=== PATIENT | female | born 1990 | race Caucasian/White ===

== ENCOUNTER 2017-01-08 22:37 | Inpatient (IN) | payer OTHER ==
[2017-01-09 01:47] LABS: Hematocrit 43.3 % (30.3-42.9); Hemoglobin 14.4 gm/dl (10.1-14.3); Mean Corpuscular HGB Conc 33 % (30-34); Mean Corpuscular Hemoglobin 30 pg (28-32); Mean Corpuscular Volume 90 fl (79-97); Platelet Count 182 K/mm3 (140-440); Red Blood Count 4.83 M/mm3 (3.65-5.03); Red Cell Distribution Width 13.5 % (13.2-15.2); White Blood Count 10.4 K/mm3 (4.5-11.0)
[2017-01-09] MEDS: LACTATED RINGERS 1,000 ML IV SCH ×2 (02:07→06:33)
[2017-01-09] MEDS: SUBLIMAZE IV PRN ×3 (02:50→05:27)
--- NOTE | 2017-01-09 04:08 | History and Physical Report ---
History of Present Illness Date of examination: 01/09/17 (pt presented to Triage with SROM) Date of admission: 01/09/17 00:37 History of present illness: EDC Confirmation: 01/23/2017 Gestational Age: 11 4/7 weeks Past History : 1 Para: 0 Risk Factors: Smoked Tobacco Use: Never smoker Smokeless Tobacco Use: Never Passive smoke exposure: no Drug use: no HIV high-risk behavior: no Caffeine use: 0 drinks per day Alcohol use: no Dietary Counseling: pn yes Past Medical History: Negative Past Medical History Past Surgical History: Negative Past Surgical History Past Medical History Surgery (Non-biochemistry specialist): Negative Past Surgical History Abnormal PAP: negative LEEANNE Exposure: negative Infertility: negative Uterine Anomaly: negative Uterine Surgery (not C/S): negative Other Gynecologic Problems: negative Infection History Hx of STD: none HIV Risk Eval: no Hepatitis B Risk Eval: low risk Personal hx. of genital herpes: no Partner hx. of genital herpes: no Varicella/Chicken Pox Status: Unknown Genetic History Congenital Heart Defect: Mom: no Dad: no Imer Disease: Mom: no Dad: no Thalassemia Mom: no Dad: no Neural Tube Defect Mom: no Dad: no Down's Syndrome Mom: no Dad: no Jay-Sachs Mom: no Dad: no Sickle Cell Disease/Trait Mom: no Dad: no Hemophilia Mom: no Dad: no Muscular Dystrophy Mom: no Dad: no Cystic Fibrosis Mom: no Dad: no [place] Chorea Mom: no Dad: no Mental Retardation Mom: no Dad: no Fragile X Mom: no Dad: no Other Genetic/Chromosomal Disorder Mom: no Dad: no Child w/other defect Mom: no Dad: no Comments/Counseling: negative genetic history according to spouse/neurocritical care physician Enviromental Exposures Xray Exposure: no Medication, drug, or alcohol use since LMP: no Chemical/Other Exposure: no Exposure to Cat Liter: no Hx of Parvovirus (Fifth Disease): no Occupational Exposure to Children: none Active Medications (reviewed today): VITAMINS () Current Allergies: No known allergies Laboratory Results Date/Time Collected: 07/08/2016 Routine Urinalysis Leukocytes: negative Nitrite: negative Urobilinogen: negative Protein: Negative Blood: negative Ketone: negative Bilirubin: negative Glucose: Negative Urine HCG: positive Review of Systems General Denies fever, chills, sweats, anorexia, fatigue, weakness, malaise, weight loss and sleep disorder. Denies nausea, vomiting, headache, swelling of legs, abdominal pain, vaginal discharge, vaginal bleeding and contractions. Denies vaginal discharge, incontinence, dysuria, hematuria, urinary frequency, amenorrhea, menorrhagia, abnormal vaginal bleeding, pelvic pain, genital sores, decreased libido, painful periods, painful sex, urinary urgency, hot flashes, vaginal dryness, vaginal itching and vaginal odor. CV Denies chest pains, palpitations, syncope, dyspnea on exertion, orthopnea, PND and peripheral edema. Resp Denies cough, dyspnea at rest, excessive sputum, hemoptysis, wheezing and pleurisy. GI Denies nausea, vomiting, diarrhea, constipation, change in bowel habits, abdominal pain, melena, hematochezia, jaundice, gas/bloating, indigestion/ heartburn, dysphagia and odynophagia. Endo Denies cold intolerance, heat intolerance, polydipsia, polyphagia, polyuria and unusual weight change. Breast Denies left breast lump, right breast lump, nipple discharge, bloody discharge from nipple, breast pain, abnormal mammogram and breast enlargement. MS Denies back pain, joint pain, joint swelling, muscle cramps, muscle weakness, stiffness, arthritis, sciatica, restless legs, leg pain at night and leg pain with exertion. Derm Denies rash, itching, dryness and suspicious lesions. Neuro Denies paralysis, paresthesias, headache, seizures, tremors, vertigo, transient blindness, frequent falls, frequent headaches and difficulty walking. Psych Denies depression, anxiety, irritability and mood swings. Eyes Denies blurring, diplopia, irritation, discharge, vision loss, eye pain and photophobia. ENT Denies earache, ear discharge, tinnitus, decreased hearing, nasal congestion, nosebleeds, sore throat and hoarseness. Allergy Denies urticaria, allergic rash, hay fever and recurrent infections. Heme Denies abnormal bruising, bleeding and enlarged lymph nodes. 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 Vulva/Vagina: No lesions, normal BUS, normal rugae Cervix: No lesions; no cervical motion tenderness Uterus: normal size and position, midline, mobile Adnexae: no masses or tenderness Rectovaginal: no masses or tenderness Past History - Obstetrical History Expected Date of Delivery: 01/23/17 Actual Gestation: 38 Week(s) 0 Day(s) : 1 Para: 0 Hx # Term Pregnancies: 0 Number of Living Children: 0 Medications and Allergies Allergies Allergy/AdvReac Type Severity Reaction Status Date / Time No Known Allergies Allergy Unverified 01/08/17 23:12 Home Medications Medication Instructions Recorded Confirmed Last Taken Type No Known Home Medications [No 01/09/17 01/09/17 Unknown History Reported Home Medications] Active Meds: Active Medications Fentanyl (Sublimaze) 100 mcg IV Q2H PRN PRN Reason: Pain Last Admin: 01/09/17 02:50 Dose: 100 mcg Lactated Ringer's (Lactated Ringers) 1,000 mls @ 125 mls/hr IV DIRECT BRENDON Last Admin: 01/09/17 02:07 Dose: 125 mls/hr - Vital Signs Vital signs: Vital Signs Pulse BP 79 121/78 01/08/17 22:55 01/08/17 22:55 Temp Pulse Resp BP Pulse Ox 99 F 67 20 117/56 98 01/09/17 03:59 01/09/17 03:59 01/09/17 03:59 01/09/17 03:59 01/09/17 03:55 - Physical Exam Breasts: Positive: deferred Cardiovascular: Regular rate, Normal S1, Normal S2 Lungs: Positive: Normal air movement Abdomen: Positive: normal appearance, soft, normal bowel sounds. Negative: distention, tenderness Genitourinary (Female): Positive: normal external genitalia Vulva: both: normal Vagina: Positive: normal moisture. Negative: discharge Cervix: Negative: lesion, discharge Uterus: Positive: normal size, normal contour Adnexa: both: normal Anus/Rectum: Positive: normal perianal skin, heme negative. Negative: rectal mass, hemorrhoids Extremities: Positive: normal Deep Tendon Reflex Grade: Normal +2 - Obstetrical FHR: category 1 Uterine Contraction Monitor Mode: External Cervical Dilatation: 5 (SROM on arrival; 1 CM in Triage @ 2230) Cervical Effacement Percentage: 100 station: 0 Uterine Contraction Pattern: Regular Uterine Tone Measurement Phase: Resting Uterine Contraction Intensity: Moderate Results Result Diagrams: 01/09/17 00:43 Abnormal lab results 01/09/17 Range/Units 00:43 Hgb 14.4 H (10.1-14.3) gm/dl Hct 43.3 H (30.3-42.9) % All other labs normal. Laboratory Data-Patient Name: RADHA PANDEY Test Date Result Blood Type 08/07/2016 O Rh 08/07/2016 Positive Antibody Screen negative Rubella 08/07/2016 IMMUNE Serology (RPR) 12/23/2016 NR HBsAg 08/07/2016 Negative Hemoglobin 10/21/2016 13.5 Hematocrit 10/21/2016 40.4 Platelets 08/07/2016 192 [id number] Chlamydia DNA 07/08/2016 Negative GC DNA/Culture 07/08/2016 Urine Culture 08/07/2016 Final report Group B Strep cult Negative PAP 07/08/2016 Normal, Satisfactory HIV 12/23/2016 AFP/Quad Screen 07/08/2016 Glucola Test 3hr GTT (Fasting) 1 hr 2 hr 3 hr [facility]-Patient Name:RADHA PANDEY Test Date Result Varicella Ab Sickle Cell 08/07/2016 Negative PPD Fibronectin Cystic Fibrosis Parvovirus TSH Free T4 Hepatitis C ALT AST Uric Acid Creatinine 24 hr Urine Protein BITA Assessment and Plan 26yo @ 38 weeks with SROM in early labor on arrival, approx. 2230. GBS negative. Ctx q2-3, 45sec, moderate w/o augmentation. Pt progressed to 4cm over 4 hours. Pt exam on my arrival bloody show, 5,100,0 @ 0400. Pt declines epidural. Ctx continue q2-3,50,mod. IV medication given X 2 at this time. Will reassess as needed. Anticipate delivery.
[2017-01-09] MEDS: PITOCin/NS 30 UNIT/500ML 30 UNITS/500 ML BAG IV SCH ×2 (05:15→07:18)
[2017-01-09] MEDS ORDERED: PITOCin/NS 20 UNIT/1000ML DRIP 20 UNITS/1,000 ML BAG IV SCH ×2 (06:00→11:23)
[2017-01-09] MEDS ORDERED: ePHEDrine SULFATE IV PRN (06:02)
[2017-01-09] MEDS ORDERED: NARCAN 2 MG/2 ML IV PRN (06:02)
--- NOTE | 2017-01-09 06:04 | Anesthesia Consultation ---
Anesthesia Consult and Med Hx Date of service: 01/09/17 - Airway Anesthetic Teeth Evaluation: Good ROM Head & Neck: Adequate Mallampati Class: Class II Intubation Access Assessment: Probably Good - Pulmonary Exam CTA: Yes - Cardiac Exam Cardiac Exam: RRR - Pre-Operative Health Status ASA Pre-Surgery Classification: ASA2 Proposed Anesthetic Plan: Epidural - Pulmonary Hx Asthma: No COPD: No Hx Pneumonia: No - Cardiovascular System Hx Hypertension: No - Central Nervous System Hx Seizures: No Hx Psychiatric Problems: No - Endocrine Hx Renal Disease: No Hx End Stage Renal Disease: No Hx Hypothyroidism: No Hx Hyperthyroidism: No - Hematic Hx Anemia: No Hx Sickle Cell Disease: No - Other Systems Hx Alcohol Use: No
--- NOTE | 2017-01-09 06:39 | Progress Note ---
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 of genital herpes: no Partner hx. of genital herpes: no Varicella/Chicken Pox Status: Unknown Genetic History Congenital Heart Defect: Mom: no Dad: no Imer Disease: Mom: no Dad: no Thalassemia Mom: no Dad: no Neural Tube Defect Mom: no Dad: no Down's Syndrome Mom: no Dad: no Jay-Sachs Mom: no Dad: no Sickle Cell Disease/Trait Mom: no Dad: no Hemophilia Mom: no Dad: no Muscular Dystrophy Mom: no Dad: no Cystic Fibrosis Mom: no Dad: no [place] Chorea Mom: no Dad: no Mental Retardation Mom: no Dad: no Fragile X Mom: no Dad: no Other Genetic/Chromosomal Disorder Mom: no Dad: no Child w/other defect Mom: no Dad: no Comments/Counseling: negative genetic history 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 Enviromental Exposures Xray Exposure: no Medication, drug, or alcohol use since LMP: no Chemical/Other Exposure: no Exposure to Cat Liter: no Hx of Parvovirus (Fifth Disease): no Occupational Exposure to Children: none Active Medications (reviewed today): VITAMINS () Current Allergies: No known allergies Laboratory Results Date/Time Collected: 07/08/2016 Routine Urinalysis Leukocytes: negative Nitrite: negative Urobilinogen: negative Protein: Negative Blood: negative Ketone: negative Bilirubin: negative Glucose: Negative Urine HCG: positive Review of Systems General Denies fever, chills, sweats, anorexia, fatigue, weakness, malaise, weight loss and sleep disorder. Denies nausea, vomiting, headache, swelling of legs, abdominal pain, vaginal discharge, vaginal bleeding and contractions. Denies vaginal discharge, incontinence, dysuria, hematuria, urinary frequency, amenorrhea, menorrhagia, abnormal vaginal bleeding, pelvic pain, genital sores, decreased libido, painful periods, painful sex, urinary urgency, hot flashes, vaginal dryness, vaginal itching and vaginal odor. CV Denies chest pains, palpitations, syncope, dyspnea on exertion, orthopnea, PND and peripheral edema. Resp Denies cough, dyspnea at rest, excessive sputum, hemoptysis, wheezing and pleurisy. GI Denies nausea, vomiting, diarrhea, constipation, change in bowel habits, abdominal pain, melena, hematochezia, jaundice, gas/bloating, indigestion/ heartburn, dysphagia and odynophagia. Endo Denies cold intolerance, heat intolerance, polydipsia, polyphagia, polyuria and unusual weight change. Breast Denies left breast lump, right breast lump, nipple discharge, bloody discharge from nipple, breast pain, abnormal mammogram and breast enlargement. MS Denies back pain, joint pain, joint swelling, muscle cramps, muscle weakness, stiffness, arthritis, sciatica, restless legs, leg pain at night and leg pain with exertion. Derm Denies rash, itching, dryness and suspicious lesions. Neuro Denies paralysis, paresthesias, headache, seizures, tremors, vertigo, transient blindness, frequent falls, frequent headaches and difficulty walking. Psych Denies depression, anxiety, irritability and mood swings. Eyes Denies blurring, diplopia, irritation, discharge, vision loss, eye pain and photophobia. ENT Denies earache, ear discharge, tinnitus, decreased hearing, nasal congestion, nosebleeds, sore throat and hoarseness. Allergy Denies urticaria, allergic rash, hay fever and recurrent infections. Heme Denies abnormal bruising, bleeding and enlarged lymph nodes. 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 Vulva/Vagina: No lesions, normal BUS, normal rugae Cervix: No lesions; no cervical motion tenderness Uterus: normal size and position, midline, mobile Adnexae: no masses or tenderness Rectovaginal: no masses or tenderness Patient reports: movement normal Objective - Vital Signs Vital Signs: Vital Signs - 12hr 01/08/17 01/09/17 01/09/17 22:55 01:10 01:15 Temperature Pulse Rate 79 82 78 Pulse Rate [ Right From Monitor] Respiratory Rate Blood Pressure 121/78 Blood Pressure [Left Arm] O2 Sat by Pulse 98 97 Oximetry 01/09/17 01/09/17 01/09/17 01:20 01:24 01:25 Temperature 98.4 F Pulse Rate 70 76 76 Pulse Rate [ Right From Monitor] Respiratory 18 Rate Blood Pressure 103/62 Blood Pressure [Left Arm] O2 Sat by Pulse 98 97 Oximetry 01/09/17 01/09/17 01/09/17 01:30 01:35 01:40 Temperature Pulse Rate 78 76 75 Pulse Rate [ Right From Monitor] Respiratory Rate Blood Pressure Blood Pressure [Left Arm] O2 Sat by Pulse 97 97 97 Oximetry 01/09/17 01/09/17 01/09/17 01:45 01:50 01:55 Temperature Pulse Rate 82 79 79 Pulse Rate [ Right From Monitor] Respiratory Rate Blood Pressure Blood Pressure [Left Arm] O2 Sat by Pulse 97 97 98 Oximetry 01/09/17 01/09/17 01/09/17 02:00 02:05 02:10 Temperature Pulse Rate 90 75 80 Pulse Rate [ Right From Monitor] Respiratory Rate Blood Pressure Blood Pressure [Left Arm] O2 Sat by Pulse 97 98 97 Oximetry 01/09/17 01/09/17 01/09/17 02:15 02:20 02:25 Temperature Pulse Rate 77 82 75 Pulse Rate [ Right From Monitor] Respiratory Rate Blood Pressure Blood Pressure [Left Arm] O2 Sat by Pulse 97 97 98 Oximetry 01/09/17 01/09/17 01/09/17 02:30 02:35 02:40 Temperature Pulse Rate 77 73 80 Pulse Rate [ Right From Monitor] Respiratory Rate Blood Pressure Blood Pressure [Left Arm] O2 Sat by Pulse 97 97 97 Oximetry 01/09/17 01/09/17 01/09/17 02:43 02:45 02:50 Temperature Pulse Rate 106 H 75 76 Pulse Rate [ Right From Monitor] Respiratory Rate Blood Pressure Blood Pressure [Left Arm] O2 Sat by Pulse 94 97 96 Oximetry 01/09/17 01/09/17 01/09/17 02:55 03:00 03:05 Temperature Pulse Rate 69 74 72 Pulse Rate [ Right From Monitor] Respiratory Rate Blood Pressure Blood Pressure [Left Arm] O2 Sat by Pulse 97 96 96 Oximetry 01/09/17 01/09/17 01/09/17 03:10 03:15 03:20 Temperature Pulse Rate 72 76 76 Pulse Rate [ Right From Monitor] Respiratory Rate Blood Pressure Blood Pressure [Left Arm] O2 Sat by Pulse 97 96 96 Oximetry 01/09/17 01/09/17 01/09/17 03:25 03:30 03:35 Temperature Pulse Rate 74 76 77 Pulse Rate [ Right From Monitor] Respiratory Rate Blood Pressure Blood Pressure [Left Arm] O2 Sat by Pulse 97 97 96 Oximetry 01/09/17 01/09/17 01/09/17 03:40 03:45 03:50 Temperature Pulse Rate 71 82 83 Pulse Rate [ Right From Monitor] Respiratory Rate Blood Pressure Blood Pressure [Left Arm] O2 Sat by Pulse 97 96 97 Oximetry 01/09/17 01/09/17 01/09/17 03:55 03:59 04:10 Temperature 99 F Pulse Rate 67 Pulse Rate [ 67 Right From Monitor] Respiratory 20 20 Rate Blood Pressure 117/56 Blood Pressure 117/56 [Left Arm] O2 Sat by Pulse 98 Oximetry 01/09/17 01/09/17 01/09/17 05:20 05:28 05:29 Temperature 98.3 F Pulse Rate 72 79 Pulse Rate [ Right From Monitor] Respiratory 22 Rate Blood Pressure Blood Pressure [Left Arm] O2 Sat by Pulse 96 93 Oximetry 01/09/17 01/09/17 01/09/17 05:33 05:38 05:43 Temperature Pulse Rate 68 81 83 Pulse Rate [ Right From Monitor] Respiratory Rate Blood Pressure Blood Pressure [Left Arm] O2 Sat by Pulse 96 96 96 Oximetry 01/09/17 01/09/17 01/09/17 05:48 05:53 05:58 Temperature Pulse Rate 81 91 H 94 H Pulse Rate [ Right From Monitor] Respiratory Rate Blood Pressure Blood Pressure [Left Arm] O2 Sat by Pulse 97 97 98 Oximetry 01/09/17 01/09/17 01/09/17 06:03 06:06 06:08 Temperature Pulse Rate 95 H 90 83 Pulse Rate [ Right From Monitor] Respiratory Rate Blood Pressure 116/59 104/53 Blood Pressure [Left Arm] O2 Sat by Pulse 97 97 Oximetry 01/09/17 01/09/17 01/09/17 06:10 06:13 06:14 Temperature Pulse Rate 86 69 68 Pulse Rate [ Right From Monitor] Respiratory Rate Blood Pressure 108/59 118/59 Blood Pressure [Left Arm] O2 Sat by Pulse 98 Oximetry 01/09/17 01/09/17 01/09/17 06:16 06:18 06:20 Temperature Pulse Rate 74 75 93 H Pulse Rate [ Right From Monitor] Respiratory Rate Blood Pressure 120/73 111/62 108/56 Blood Pressure [Left Arm] O2 Sat by Pulse 97 Oximetry 01/09/17 01/09/17 01/09/17 06:22 06:23 06:24 Temperature Pulse Rate 72 72 73 Pulse Rate [ Right From Monitor] Respiratory Rate Blood Pressure 113/62 104/53 Blood Pressure [Left Arm] O2 Sat by Pulse 97 Oximetry - Exam Breasts: deferred Cardiovascular: Regular rate Lungs: Normal air movement Abdomen: Present: normal appearance, soft. Absent: distention, tenderness Uterus: Present: normal FHR: auscultation normal, category 1 Uterine Contraction Monitor Mode: External Cervical Dilatation: 8 (bloody show) Cervical Effacement Percentage: 100 station: 0 Uterine Contraction Pattern: Regular (pitocin @ 2mu) Uterine Tone Measurement Phase: Resting Uterine Contraction Intensity: Moderate Extremities: normal Deep Tendon Reflex Grade: Normal +2 - Labs Labs: Abnormal Labs 01/09/17 00:43 Hgb 14.4 H Hct 43.3 H Laboratory Results - last 24 hr 01/09/17 01/09/17 00:43 00:43 WBC 10.4 RBC 4.83 Hgb 14.4 H Hct 43.3 H MCV 90 MCH 30 MCHC 33 RDW 13.5 Plt Count 182 Blood Type O POSITIVE Antibody Screen TNR ALISON Antibody Screen Negative
[2017-01-09] MEDS ORDERED: ePHEDrine SULFATE ONE (06:50)
[2017-01-09] MEDS ORDERED: fentaNYL-BUPIV 2 MCG/ML-0.125% 200 MCG/100 ML BAG EPIDURAL SCH (07:00)
--- NOTE | 2017-01-09 07:24 | Ultrasound Report ---
ULTRASOUND OB LIMITED History: well being Technique: Transabdominal ultrasound with Doppler interrogation. Gestation: Single Position: Cephalic Amniotic Fluid: Decreased VINICIO = 6.0 cm Heart Rate: 137 BPM
--- NOTE | 2017-01-09 09:30 | Procedure Note ---
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 placed skin to skin, 3 vessel cord clamped and cut. cord blood collected, Placenta del intact and complete. right labial and 2nd degree vaginal /perineal laceration repaired and hemostatic. ELB 300, infant 6#4, apgars 8/9. Mother and LDR stable. - A at 1 minute: 8 at 5 minutes: 9 Gender: Male (6#4)
[2017-01-09] MEDS ORDERED: DERMOPLAST TP PRN (11:23)
[2017-01-09] MEDS ORDERED: TYLENOL PO PRN (11:23)
[2017-01-09] MEDS ORDERED: BENADRYL PO PRN (11:23)
[2017-01-09] MEDS ORDERED: PHENERGAN PO PRN (11:23)
[2017-01-09] MEDS ORDERED: ZOFRAN IV PRN (11:23)
[2017-01-09] MEDS ORDERED: MILK OF MAGNESIA PO PRN (11:23)
[2017-01-09] MEDS ORDERED: PRENATAL VITAMIN PO SCH (11:23)
[2017-01-09] MEDS ORDERED: DULCOLAX PR PRN (11:23)
[2017-01-09] MEDS ORDERED: LANSINOH TP PRN (11:23)
[2017-01-09] MEDS ORDERED: SODIUM CHLORIDE FLUSH SYRINGE 10 ML IV NR (11:23)
[2017-01-09] MEDS ORDERED: COLACE PO SCH (11:23)
[2017-01-09] MEDS ORDERED: NORCO 5/325 PO PRN (11:23)
[2017-01-09] MEDS ORDERED: TUCKS PAD TP PRN (11:23)
[2017-01-09] MEDS: MOTRIN PO SCH ×2 (11:56→18:30)
[2017-01-09 20:48] LABS: Hematocrit 35.1 % (30.3-42.9); Hemoglobin 11.7 gm/dl (10.1-14.3)
[2017-01-10] MEDS: MOTRIN PO SCH ×3 (00:30→12:19)
--- NOTE | 2017-01-10 07:53 | Progress Note ---
Assessment and Plan patient doing well this morning, no complaints. VSSAF, evan griffiths, H&H 11.7/ 35.1. Patient desires d/c home today. She does not want circumcised, will plan for routine f/u in 4-6 weeks. - Patient Problems (1) (normal spontaneous vaginal delivery) Current Visit: Yes Status: Acute Subjective - Subjective Date of service: 01/10/17 Principal diagnosis: DAY #1 S/P Patient reports: appetite normal, voiding normally, pain well controlled, ambulating normally, no dizzy ambulation, no nauseated [place]: doing well, bottle feeding Objective - Vital Signs Latest vital signs: Vital Signs Temp Pulse Pulse Resp BP BP BP 01/10/17 05:56 18 01/10/17 00:30 18 01/10/17 00:00 98.9 F 88 20 98/56 01/09/17 20:00 98.2 F 76 18 96/58 01/09/17 16:15 98.7 F 70 16 104/61 01/09/17 10:30 98.1 F 73 18 97/56 01/09/17 10:07 93 H 108/60 01/09/17 09:46 99.2 F 101/57 01/09/17 09:15 99 H 101/57 01/09/17 09:09 106 H 109/64 01/09/17 08:51 108 H 01/09/17 08:48 122 H 171/98 01/09/17 08:46 74 01/09/17 08:41 108 H 01/09/17 08:36 78 01/09/17 08:31 117 H 01/09/17 08:26 104 H 01/09/17 08:21 110 H 01/09/17 08:16 67 114/55 01/09/17 08:08 92 H 01/09/17 08:03 79 01/09/17 07:58 86 01/09/17 07:53 88 Pulse Ox 01/10/17 05:56 01/10/17 00:30 01/10/17 00:00 01/09/17 20:00 01/09/17 16:15 01/09/17 10:30 01/09/17 10:07 01/09/17 09:46 01/09/17 09:15 01/09/17 09:09 01/09/17 08:51 100 01/09/17 08:48 01/09/17 08:46 100 01/09/17 08:41 100 01/09/17 08:36 100 01/09/17 08:31 100 01/09/17 08:26 100 01/09/17 08:21 100 01/09/17 08:16 100 01/09/17 08:08 01/09/17 08:03 01/09/17 07:58 01/09/17 07:53 100 Intake and Output 01/09/17 01/10/17 01/10/17 22:59 06:59 14:59 Intake Total 240 Balance 240 Intake: Oral 240 Other: Total, Intake Amount 240 # Voids Void 1 - Exam Breasts: Present: normal Cardiovascular: Present: Regular rate Lungs: Present: Clear to auscultation, Normal air movement Abdomen: Present: normal appearance, soft, normal bowel sounds Vulva: both: laceration/episiotomy Uterus: Present: normal, firm, fundal height below umbilicus Extremities: Present: normal Deep Tendon Reflex Grade: Normal +2 Incision: Present: normal, dry, intact
--- NOTE | 2017-01-10 07:56 | Discharge Summary ---
Providers - Providers Date of Admission: 01/09/17 00:37 Date of discharge: 01/10/17 (desires d/c home) Attending physician: ANGELINA FERNANDEZ 01/09/17 11:23 Consult to [employer] [CONS] Routine Reason For Exam: assistance with , SNS Primary care physician: ANGELINA FERNANDEZ Hospitalization Reason for admission: active labor Delivery: Episiotomy: none Laceration: 2nd degree Incision: normal, dry, intact Other procedures: none complications: none Discharge diagnosis: IUP at term delivered [place] baby: male Hospital course: uncomplicated vaginal delivery Condition at discharge: Good Disposition: DC-01 TO HOME OR SELFCARE - Discharge Diagnoses (1) (normal spontaneous vaginal delivery) Status: Acute Plan - Discharge Medications Prescriptions: Ibuprofen [Motrin 800 MG tab] 800 mg PO Q8HR PRN #30 tablet PRN Reason: Pain - Provider Discharge Summary Activity: routine, no sex for 6 weeks, no heavy lifting 4 weeks, no strenuous exercise Diet: routine Instructions: routine Additional instructions: [] Smoking cessation referral if applicable(refer to patient education folder for contact #) [] Refer to [facility]'s [facility] Booklet Call your doctor immediately for: * Fever > 100.5 * Heavy vaginal bleeding ( >1 pad per hour) * Severe persistent headache * Shortness of breath * Reddened, hot, painful area to leg or breast * Drainage or odor from incision. * Keep incision clean and dry at all times and follow doctor's instructions regarding bathing/showering - Follow up plan Follow up: ANGELINA FERNANDEZ MD [Primary Care Provider] - 6 Weeks (Congratulations! please call [phone] to schedule your checkup in 4 -6 weeks. Call for any questions or concerns. )
[2017-01-10] MEDS ORDERED: BOOSTRIX IM ONE (09:31)
[2017-01-10 18:19] VITALS: BP 108/68
== END 2017-01-10 17:40 | disposition home or self-care (01) | DRG 775 ==
LOC: TRG 22:37 → LD 01-09 00:37 → TRG 01-09 00:37 → OB 01-09 10:29
PROVIDERS: ADMIT Obstetrics & Gynecology; ATTEND Obstetrics & Gynecology
PROC: 10E0XZZ Delivery of Products of Conception, External Approach (ICD-10-PCS; principal; 2017-01-09)
PROC: 0KQM0ZZ Repair Perineum Muscle, Open Approach (ICD-10-PCS; 2017-01-09)
PROC: 00HU33Z Insertion of Infusion Device into Spinal Canal, Percutaneous Approach (ICD-10-PCS; 2017-01-09)
PROC: 3E0R3CZ (ICD-10-PCS; 2017-01-09)
DX: O69.1XX0 Labor and delivery complicated by cord around neck, with compression, not applicable or unspecified (principal); O42.02 Full-term premature rupture of membranes, onset of labor within 24 hours of rupture; O70.1 Second degree perineal laceration during delivery; Z3A.38 38 weeks gestation of pregnancy; Z37.0 Single live birth
CPT/HCPCS: 36415; 76815; 85014; 85018; 85027; 86592; 86850; 86900; 86901; J2590; J3010; J7120